=== PATIENT | female | born 1965 | race Caucasian/White ===

== ENCOUNTER 2019-11-04 08:44 | Emergency (ER) | payer OTHER, SELFPAY ==
[2019-11-04 08:45] VITALS: BP 135/86; PULSE 190; RESP 27; TEMP 36.6; O2SAT 99; BMI 40.0
--- NOTE | 2019-11-04 08:47 | NURSING ---
NO OLD EKGS
--- NOTE | 2019-11-04 08:50 | EKG12_ITS ---
Test Reason : SVT Blood Pressure : / mmHG Vent. Rate : 192 BPM Atrial Rate : 192 BPM P-R Int : 000 ms QRS Dur : 088 ms QT Int : 232 ms P-R-T Axes : 000 050 -42 degrees QTc Int : [address] depression, consider subendocardial injury Nonspecific T wave abnormality Abnormal ECG Confirmed by CIPRIANO MCDANIELS, MARCO A ([id number]), desk editor BC LAWRENCE ([id number]) on 11/08/2019 2:19:52 PM Referred By: IVELISSE Confirmed By:CLYDE COTA MD
[2019-11-04] MEDS: 0.9% Normal Saline 1,000 ML 150 ML IV (08:52)
[2019-11-04] MEDS: Adenosine 6 MG/2 ML Syringe 12 MG IV (08:52)
[2019-11-04 08:58] VITALS: O2SAT 96
--- NOTE | 2019-11-04 08:58 | EKG12_ITS ---
Test Reason : SVT Blood Pressure : / mmHG Vent. Rate : 099 BPM Atrial Rate : 099 BPM P-R Int : 152 ms QRS Dur : 088 ms QT Int : 320 ms P-R-T Axes : 039 032 029 degrees QTc Int : 410 ms Sinus rhythm with Premature atrial complexes with Aberrant conduction Nonspecific ST abnormality Abnormal ECG Confirmed by CIPRIANO MCDANIELS, MARCO A ([id number]), writer editor BC LAWRENCE ([id number]) on 11/08/2019 2:19:41 PM Referred By: IVELISSE Confirmed By:CLYDE COTA MD
--- NOTE | 2019-11-04 08:58 | RAD_ITS ---
STUDY: X-RAY CHEST REASON FOR EXAM: Female, 54 years old. SVT FOR ABOUT A HALF HOUR, STARTED WITH DIZZINESS AND TROUBLE SEEING TECHNIQUE: Single AP portable view of the chest. COMPARISON: None. FINDINGS: EKG electrodes are seen. Increased interstitial markings at the lung bases worse on the left side with areas of confluence. This is suggestive of basilar scarring. There is no demonstrated pleural abnormality. Normal size heart. Normal mediastinum and norma. Normal visualized pulmonary arteries. Normal visualized aortic arch and descending thoracic aorta. Normal visualized thoracic spine. Normal visualized ribs, clavicles, and shoulders. There is no demonstrated abnormality of the visualized soft tissue structures of the upper abdomen. RAD/Chest 1 View (Portable) IMPRESSION: Findings suggestive of interstitial scarring at the lung bases more prominent on the left side. Electronically Signed: Jose De Jesus Santana, at 9:20 EDT , Service support ,
[2019-11-04 09:21] LABS: Absolute Lymphocyte Count 1.12 X10^3/uL (0.83-4.51); Basophil# 0.03 X10^3/uL; Basophil% 0.4 % (0-1); Eosinophil# 0.09 X10^3/uL; Eosinophils% 1.2 % (0-5); Hematocrit 39.5 % (37-47); Lymphocyte # 1.12 X10^3/ul (4.0); Lymphocyte % 14.3 % (19-41); Mean Corp Hgb Conc 32.9 g/dL (32-36); Mean Corpuscular Hgb 27.5 pg (27.0-32.0); Mean Corpuscular Volume 83.7 fL (81-99); Mean Platelet Vol. 11.3 fl (6.2-12.0); Monocyte# 0.48 X10^3/uL; Monocyte% 6.1 % (0-10); NRBC Flagged by Analyzer 0 % (0-5); Neutrophil # 6.04 X10^3/uL (2.7-7.7); Neutrophil % 77.2 % (47-70); POSITIVE COUNT YES; Platelet Count 94 K/mm3 (150-450); RBC Distribution Width CV 13.4 % (11.6-14.6); RBC Distribution Width SD 40.5 fl (35.1-43.9); Red Blood Count 4.72 M/mm3 (4.2-5.4); White Blood Count 7.8 K/mm3 (4.4-11.0)
[2019-11-04 09:31] LABS: Anion Gap 6 (5-15); BUN 16 mg/dL (7-18); BUN/Creat Ratio 17.8 RATIO (10-20); Calcium,Total 8.8 mg/dL (8.5-10.1); Chloride 113 mmol/L (98-107); EST Glomerular Filtration Rate 69 mL/min (>60); Est Glom Filt Rate - Afr Amer 84 mL/min (>60); Estimated Creatinine Clearance 60.99 ml/min; Glucose 146 mg/dL (74-106); Magnesium 1.6 mg/dL (1.6-2.6); Potassium 3.7 mmol/L (3.5-5.1); Sodium Level 143 mmol/L (136-145); Thyroid Stim Hormone (TSH) 0.15 uIU/mL (0.358-3.74)
--- NOTE | 2019-11-04 09:33 | ED.VISSUMM ---
- ER Visit Summary Date of Service: 11/04/19 Chief Complaint: Palpitations History of Present Illness: The patient is a [address] Ordaz. She reports that 8:00 this morning CAD had the onset of palpitations that she describes as a racing heartbeat. Is associated with a sharp substernal pressure that is 10 out of 10 at worst and 5-10 currently. Is worsened by nothing including exertion. Is also relieved by nothing. She does report that she feels lightheaded, short of breath, nauseated, and diaphoretic. She has never had anything like this before. Physical Examination: Vitals: 97.9, 135/86, 190, 27, 96% on 2 L nasal cannula. General: Well-nourished and well-developed. Head: Normocephalic atraumatic. Neck: Supple, no lymphadenopathy. No JVD. Nontender. Cardiovascular: Tachycardic regular rhythm. No murmurs. Respiratory: No respiratory distress. Clear to auscultation bilaterally. Abdominal: Soft, nontender, nondistended, normal bowel sounds. No guarding, rebound, or peritoneal signs. Back: Nontender. Extremities: Nontender, no edema. Skin: Normal color, no rash. Neurologic: Alert and oriented ?3. Cranial nerves II through XII are intact. Normal strength and sensation. Psych: Normal affect. Test Results: EKG shows narrow complex SVT at [address] changes. Repeat EKG is sinus at 99 with PVCs. CBC shows platelets of 94, segs neutrophils 77, lymphocytes of 14. Chem-7 shows a chloride of 113 and glucose 146. TSH is 0.15. She has a history of a thyroidectomy and is on Synthroid. Clinical Impression(s) from Imaging Studies Chest X-Ray 11/04/19 08:58 IMPRESSION: Findings suggestive of interstitial scarring at the lung bases more prominent on the left side. Electronically Signed: Jose De Jesus Santana, at 9:20 EDT , Service support , Emergency Department Course and Treatment: Patient had an IV placed. She was given 6 mg of adenosine by squad without conversion. She is given 12 mg of adenosine here and converted to a sinus rhythm. She is been observed over the course of an hour and is remained in sinus rhythm. She is resting comfortably. Treatment Plan: Patient will be discharged with instructions to follow-up with Dr. Kwok in 1 to 2 weeks. Return to the emergency department for any worsening symptoms. Disposition: To home in improved and stable condition. Impression: 1. SVT. 2. Low TSH on Synthroid. This note was generated with [employer] dictation software. It may contain incorrect words, spelling, and punctuation that were not noted in review of the chart prior to signing ED Disposition - Plan for ED Patient: Instructions: ED Tachycardia PAT Referrals: Jack Pereira [NON-STAFF] - 1-2 Weeks
[2019-11-04 09:42] VITALS: BP 112/73; PULSE 92; RESP 22; O2SAT 96
== END 2019-11-04 09:57 | disposition home or self-care (01) ==
PROVIDERS: Emergency Provider Emergency Medicine; PCP Family Medicine
DX: I47.1 Supraventricular tachycardia (principal); E89.0 Postprocedural hypothyroidism; F32.9 Major depressive disorder, single episode, unspecified; Z79.899 Other long term (current) drug therapy
CPT/HCPCS: 71045; 80048; 83735; 84443; 85025; 93005; 96361; 96374; 99285; A4216; J0153